=== PATIENT | male | born 1985 | race Two or more races ===

== ENCOUNTER 2024-06-22 15:10 | Emergency (ER) | payer BC ==
[~2024-06-22] VITALS: Ht 180.3 cm; Wt 133.8 kg
[2024-06-22] MEDS ORDERED: diphenhydrAMINE 50 MG/1 ML VIAL ONE (17:42)
[2024-06-22] MEDS ORDERED: HYDROMORPHONE 1 MG/1 ML DISP.SYRIN ONE ×2 (17:43→22:15)
[2024-06-22] MEDS: diphenhydrAMINE 50 MG/1 ML VIAL IM ONE (17:52)
[2024-06-22] MEDS: HYDROMORPHONE 1 MG/1 ML DISP.SYRIN IM ONE ×2 (17:53→22:27)
[2024-06-22] MEDS ORDERED: HYDR-3980 PO (18:28)
[2024-06-22] MEDS ORDERED: IBUP-1957 PO (18:28)
[2024-06-22] MEDS ORDERED: CYCL10TA9 PO (22:14)
[2024-06-22] MEDS ORDERED: ONDANSETRON ODT 4 MG TAB.RAPDIS ONE (22:14)
[2024-06-22] MEDS ORDERED: CYCLOBENZAPRINE HCL 10 MG TABLET ONE (22:15)
[2024-06-22] MEDS: ONDANSETRON ODT 4 MG TAB.RAPDIS SL ONE (22:27)
[2024-06-22] MEDS: CYCLOBENZAPRINE HCL 10 MG TABLET PO ONE (22:27)
[2024-06-22 23:26] VITALS: BP 129/75; O2SAT 94
[2024-06-23] MEDS ORDERED: CYCL5TAB PO (10:20)
== END 2024-06-22 23:27 | disposition home or self-care (01) ==
LOC: ER 15:13
DX: S33.5XXA Sprain of ligaments of lumbar spine, initial encounter (principal); E78.5 Hyperlipidemia, unspecified; I10 Essential (primary) hypertension; J45.909 Unspecified asthma, uncomplicated; Z88.0 Allergy status to penicillin; Z88.1 Allergy status to other antibiotic agents
CPT/HCPCS: 99285; 72131; 96372 ×3; J1171 ×2; J1200; A4606; A4663; Q0162